=== PATIENT | male | born 1990 | race Two or more races ===

== ENCOUNTER 2020-05-07 12:04 | Emergency (ER) | payer SELFPAY ==
[~2020-05-07] VITALS: Ht 172.7 cm; Wt 73.0 kg
--- NOTE | 2020-05-07 12:10 | NUR ---
[email or web address], overdose on fentanyl, narcan 5mg given on scene and able to answer question, BS 113, was unresponsive on scene, to ER bed 11, hooked to cardiac monitor technician and pox, NOTED WITH SINUS RHYTHM, changed to hosp gown, warm blanket provided, patient aao x , breathing even and unlabored, Dr Elliott at bedside Addendum: 05/07/20 at 1907 by [facility] [email or web address], overdose on fentanyl, narcan 5mg given on scene and able to answer question, BS 113, was unresponsive on scene, to ER bed 11, hooked to cardiac monitor technician and pox, noted sinus rhythm, changed to hosp gown, warm blanket provided, patient aao x 1, breathing even and unlabored, Dr Elliott at bedside
[2020-05-07] MEDS: IV NS 0.9% 1,000 ML IV ONE (12:25)
[2020-05-07] MEDS: NALOXONE HCL 4 MG in IV NS 0.9% 240 ML IV PRN (12:58)
--- NOTE | 2020-05-07 13:57 | NUR ---
PATIENT IN BED, ASLEEP, EASILY AROUSABLE BY VOICE, APPEARS DROWSY. GOES BACK TO SLEEP IMMEDIATELY. HOOKED TO MONITOR, VSS. WILL CONTINUE TO MONITOR ACCORDINGLY.
--- NOTE | 2020-05-07 15:48 | NUR ---
PATIENT IN BED ASLEEP, EASILY AROUSABLE BY VOICE. HOOKED TO MONITOR, WILL CONTINUE TO MONITOR ACCORDINGLY
--- NOTE | 2020-05-07 16:29 | NUR ---
PATIENT IN BED ASLEEP, EASILY AROUSABLE BY VOICE. HOOKED TO MONITOR, WILL CONTINUE TO MONITOR ACCORDINGLY
--- NOTE | 2020-05-07 17:47 | NUR ---
PATIENT ASLEEP, EASILY AROUSABLE BY VOICE. HOOKED TO MONITOR, WILL CONTINUE TO MONITOR ACCORDINGLY.
--- NOTE | 2020-05-07 19:06 | NUR ---
PATIENT IN BED ASLEEP, EASILY AROUSABLE BY VOICE, HOOKED TO MONITOR, WILL CONTINUE TO MONITOR ACCORDINGLY. KEPT COMFORTABLE AND SAFE
--- NOTE | 2020-05-07 19:21 | NUR ---
REPORT GIVEN TO RENETTA FISHER FOR MIGUEL
[2020-05-07 20:03] VITALS: BP 126/69
--- NOTE | 2020-05-07 20:03 | NUR ---
Patient discharged to home in stable condition. Written and verbal after care instructions given. Patient verbalizes understanding of instruction.
--- NOTE | 2020-05-07 20:03 | NUR ---
Patient is ambulatory with a steady gait.
--- NOTE | 2020-05-07 20:03 | NUR ---
IV removed. Catheter intact and site benign. Pressure and 4x4 applied to site. No bleeding noted.
== END 2020-05-07 20:02 | disposition home or self-care (01) ==
LOC: EDBD 12:06 → ER 12:06
DX: T40.2X1A Poisoning by other opioids, accidental (unintentional), initial encounter (principal); R41.82 Altered mental status, unspecified; Y92.89 Other specified places as the place of occurrence of the external cause
CPT/HCPCS: 93005; 96361; 96365; 96366; 99285; J2310; J7030; J7050